=== PATIENT | female | born 1955 | race African-American/Black ===

== ENCOUNTER 2017-03-24 02:25 | Emergency (ER) | payer OTHER ==
[~2017-03-24] VITALS: Ht 175.3 cm; Wt 113.4 kg
[2017-03-24 02:34] VITALS: BP 118/41
--- NOTE | 2017-03-24 03:25 | Emergency Room Report ---
History of Present Illness General Chief Complaint: Altered Level of Consciousness Source: Patient, Family Member Present Illness HPI Is a 61-year-old female with history of insulin-dependent diabetes. She is bed bound because of spinal surgery. She present with chief complaint of altered mental status and low blood sugar. Her daughter gave her insulin tonight before dinner. She did not check it. Patient was acting abnormal and blood sugar was noted to be 38. She was given glucagon and glucose. She is back to baseline now. She has chronic leg pain and back pain. No fever or chills but no nausea no vomiting. She's only take metformin as an oral medication. Take insulin. No trauma. No other complaint. Allergies: Coded Allergies: No Known Allergies (Unverified , 03/24/17) Patient History Past Medical History: see triage record, old chart reviewed, DM Past Surgical History: other Pertinent Family History: none Social History: Denies: smoking Now: No Immunizations: other Reviewed Nursing Documentation: PMH: Agreed, PSxH: Agreed Nursing Documentation-PMH Hx Cardiac Problems: Yes - CHF,SLEEP APNEA Hx Diabetes: Yes Review of Systems Eye: Denies: eye pain, blurred vision ENT: Denies: ear pain, nose congestion, throat swelling Respiratory: Denies: cough, shortness of breath Cardiovascular: Denies: chest pain, palpitations Gastrointestinal: Denies: abdominal pain, diarrhea, nausea, vomiting Musculoskeletal: Denies: back pain, joint pain Skin: Denies: rash Neurological: Denies: headache, numbness Endocrine: Denies: increased thirst, increased urine Hematologic/Lymphatic: Denies: easy bruising All Other Systems: negative except mentioned in HPI Physical Exam Vital Signs Date Time Temp Pulse Resp B/P (MAP) Pulse Ox O2 Delivery O2 Flow Rate FiO2 03/24/17 02:19 97.9 68 18 99 Room Air 03/24/17 02:34 118/41 vitals normal Sp02 EP Interpretation: reviewed, normal General Appearance: well appearing, no apparent distress, alert, obese Head: normocephalic, atraumatic Eyes: bilateral eye PERRL, bilateral eye EOMI ENT: hearing grossly normal, normal pharynx Neck: full range of motion, supple, no meningismus Respiratory: chest non-tender, lungs clear, normal breath sounds Cardiovascular #1: regular rate, rhythm, no murmur Gastrointestinal: normal bowel sounds, non tender, no mass, no organomegaly, no bruit, non-distended Musculoskeletal: back normal Neurologic: alert, oriented x3 Psychiatric: mood/affect normal Skin: warm/dry Medical Decision Making Diagnostic Impression: Primary Impression: Hypoglycemia due to insulin ER Course Patient with hypoglycemia is secondary to insulin reaction. No evidence of trauma. No evidence of infection. Better after feeding. Blood sugars been stable. We'll discharge home by ambulance. Last Vital Signs Date Time Temp Pulse Resp B/P (MAP) Pulse Ox O2 Delivery O2 Flow Rate FiO2 03/24/17 02:34 97.9 73 12 118/41 100 Room Air Status: improved Disposition: HOME, SELF-CARE Condition: Stable Referrals: [facility],REF[facility]RI (PCP) Additional Instructions: Followup with your Dr. in 7 days. Check sugar regularly. Return if worse. YAMILET SOTELO M.D. Mar 24, 2017 03:24
[2017-03-24] MEDS ORDERED: Norco 5mg/325mg tab ORAL ONE (03:30)
[2017-03-24 04:18] VITALS: BP 112/39
[2017-03-24 04:40] VITALS: BP 112/39
== END 2017-03-24 04:45 | disposition home or self-care (01) ==
LOC: EDBD 02:25 → EMR 03:12
DX: E09.649 Drug or chemical induced diabetes mellitus with hypoglycemia without coma (principal); T38.3X5A Adverse effect of insulin and oral hypoglycemic [antidiabetic] drugs, initial encounter; Y92.9 Unspecified place or not applicable; Z79.4 Long term (current) use of insulin; I50.9 Heart failure, unspecified; G47.30 Sleep apnea, unspecified
CPT/HCPCS: 99283